=== PATIENT | male | born 1975 | race Hispanic/Latino ===

== ENCOUNTER → 2017-09-02 | Day surgery (SDC) | payer OTHER ==
[2017-08-31 11:29] LABS: BASOPHILS # (AUTO) 0.1 (0.0-0.1); BASOPHILS % 0.4 % (0.0-1.0); EOSINOPHILS # (AUTO) 0.4 (0.0-0.4); EOSINOPHILS % 2.9 % (0.0-6.0); HEMATOCRIT 45.3 % (38.2-49.6); HEMOGLOBIN 14.5 g/dL (14.0-18.0); LYMPHOCYTES # (AUTO) 2.8 (1.0-3.2); LYMPHOCYTES % 21.2 % (18.0-39.1); MEAN CORPUSCULAR HEMOGLOBIN 29.5 pg (28-32); MEAN CORPUSCULAR VOLUME 92.1 fL (81-99); MONOCYTES # (AUTO) 0.7 (0.2-0.8); MONOCYTES % 5.5 % (4.4-11.3); NEUTROPHILS # (AUTO) 9.1 (2.1-6.9); NEUTROPHILS % 69.6 % (38.7-80.0); PLATELET COUNT 273 x10e3/uL (140-360); RED BLOOD COUNT 4.92 x10e6/uL (4.3-5.7)
[~2017-09-02] MED LIST: BANOPHEN25 MG PO; EPHEDRINE SULFATE INJ 50 MG/10 ML SYR ONE; FENTANYL CITRATE/PF 100MCG/2 ML INJ ONE; HYOSCYAMINE SULFATE 0.5 MG/ML AMP ONE; METOCLOPRAMIDE HCL 10 MG/2ML VIAL ONE; MIDAZOLAM HCL 2 MG/2 ML VIAL ONE; NORCO 10-325 T1 EACH PO; OMEGA 3 1,0001 EACH PO; PANTOPRAZOLE SO40 MG PO; PHENYLEPHRINE HCL 1% 10 MG/ML VIAL ONE; PREDNISONE5 M1 PO; PROPOFOL IV EMULSION 10 MG/ML 50 ML VIAL ONE; SENNA PO; SIMVASTATIN20 MG PO
--- OUTSIDE RECORDS SUMMARY | 2017-09-02 08:28 | XMS REPORT ---
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 Allergies, Adverse Reactions, Alerts This patient has no known allergies or adverse reactions. Medications This patient has no known medications. Results Test Description Test Time Test Comments Text Results Atomic Results Result Comments ANAEROBIC CULTURE 2017-04-15 05:34:00 CULTURE (BEAKER) (test dxku=0374) No anaerobes isolated SURGICALLY OBTAINED CULTURE + GRAM [id number] 15:11:00* Test Item Value Reference Range Comments CULTURE (BEAKER) (test fhht=4548) No growth GRAM STAIN RESULT (BEAKER) (test nvpo=9994) <1+ WBCs GRAM STAIN RESULT (BEAKER) (test elez=93714) No organisms seen [id number] 10:36:00* Test Item Value Reference Range Comments SODIUM (BEAKER) (test zlrb=249) 139 meq/L 136-145 POTASSIUM (BEAKER) (test wuig=599) 4.2 meq/L 3.5-5.1 Specimen slightly hemolyzed CHLORIDE (BEAKER) (test qebe=997) 104 meq/L 98-107 CO2 (BEAKER) (test fzph=884) 26 meq/L 22-29 BUN AND [id number] 10:36:00* Test Item Value Reference Range Comments BLOOD UREA NITROGEN (BEAKER) (test xfde=709) 17 mg/dL 7-21 CREATININE (BEAKER) (test cnmx=292) 0.90 mg/dL 0.57-1.25 Specimen slightly hemolyzed EGFR (BEAKER) (test snho=4151) 92 mL/min/1.73 sq m ESTIMATED GFR IS NOT ACCURATE CREATININE CLEARANCE IN PREDICTING GLOMERULAR FILTRATION RATE. ESTIMATED GFR IS NOT APPLICABLE FOR DIALYSIS PATIENTS. [id number] 10:20:00* Test Item Value Reference Range Comments HEMOGLOBIN (BEAKER) (test seey=948) 14.7 GM/DL 13.7-17.5
--- OUTSIDE RECORDS SUMMARY | 2017-09-02 08:28 | XMS REPORT | Clinical Summary ---
Author Author [facility] Address Unknown Phone Unavailable Care Team Providers Care Manager Health Name Role Phone PCP Unavailable Allergies No Known Allergies Current Medications Prescription Sig. Disp. Refills Start End Date Status Date HYDROcodone-acetaminophen Take 1 tablet by mouth Active (NORCO 10-325) 10-325 mg every 6 (six) hours as per tablet needed for Pain. omega-3 fatty acids-fish Take 2 g by mouth 2 (two) Active oil 340-1,000 mg Cap per times daily. capsule omeprazole (PRILOSEC) 40 Take 40 mg by mouth Active MG capsule daily. phentermine 30 MG capsule Take 30 mg by mouth every Active morning. simvastatin (ZOCOR) 20 MG Take 20 mg by mouth Active tablet nightly. Active Problems Problem Noted Date Internal orthopedic device mechanical complication (HCC) 04/10/2017 Encounters Date Type Specialty Care Team Description 04/10/2017 Hospital Ricardo Watt MD Encounter 04/10/2017 Procedure Pass 04/10/2017 Surgery Ricardo Watt MD REMOVAL,INTERNAL HARDWARE-LOWER 04/09/2017 Anesthesia Freddie Medeiros MD Event 03/24/2017 Hospital Pre-Admission Testing Ricardo Watt MD Encounter 03/24/2017 Orders Only General Internal Medicine after 09/01/2016 Social History Tobacco Use Types Packs/Day Years Used Date Current Every Day Smoker 2 Smokeless Tobacco: Never Used Alcohol Use Drinks/Week oz/Week Comments Yes 12 Cans of 7.2 beer Sex Assigned at Date Recorded Not on file Last Filed Vital Signs Vital Sign Reading Time Taken Blood Pressure 131/74 04/10/2017 11:40 AM CDT Pulse 76 04/10/2017 11:40 AM CDT Temperature 36.6 C (97.9 F) 04/10/2017 11:40 AM CDT Respiratory Rate 20 04/10/2017 11:40 AM CDT Oxygen Saturation 94% 04/10/2017 11:40 AM CDT Inhaled Oxygen - - Concentration Weight 96.9 kg (213 lb 9.6 oz) 04/10/2017 6:15 AM CDT Height 162.6 cm (5' 4") 04/10/2017 6:15 AM CDT Body Mass Index 36.66 04/10/2017 6:15 AM CDT Plan of Treatment Not on file Procedures Procedure Name Priority Date/Time Associated Diagnosis Comments REMOVAL,INTERNAL 04/10/2017 Chronic pain of right HARDWARE-LOWER 7:30 AM CDT ankle after 09/01/2016 Results * Anaerobic culture (04/10/2017 8:32 AM) Component Value Ref Range Result No anaerobes isolated Specimen Performing Laboratory Tissue - Leg, Right Lower [address] [address] * Surgically obtained culture + gram stain (04/10/2017 8:32 AM) Component Value Ref Range Result No growth Gram Stain Result <1+ WBCs Gram Stain Result No organisms seen Specimen Performing Laboratory Tissue - Leg, Right Lower [address] [address] * BUN and Creatinine (03/24/2017 9:50 AM) Component Value Ref Range BUN 17 7 - 21 mg/dL Creatinine 0.90Comment: Specimen slightly hemolyzed 0.57 - 1.25 mg/dL EGFR 92Comment: ESTIMATED GFR IS NOT ACCURATE mL/min/1.73 sq m CREATININE CLEARANCE IN PREDICTING GLOMERULAR FILTRATION RATE. ESTIMATED GFR IS NOT APPLICABLE FOR DIALYSIS PATIENTS. Specimen Performing Laboratory Blood [address] [address] * Hemoglobin (03/24/2017 9:50 AM) Component Value Ref Range Hemoglobin 14.7 13.7 - 17.5 GM/DL Specimen Performing Laboratory Blood [address] [address] * Electrolytes (03/24/2017 9:50 AM) Component Value Ref Range Sodium 139 136 - 145 meq/L Potassium 4.2Comment: Specimen slightly hemolyzed 3.5 - 5.1 meq/L Chloride 104 98 - 107 meq/L CO2 26 22 - 29 meq/L Specimen Performing Laboratory Blood [facility] [address] [place] [address], [place] [address] * ECG 12 lead (03/24/2017 9:48 AM) Specimen Performing Laboratory GE MUSE Narrative Ventricular Rate 72 BPM Atrial Rate 72 BPM P-R Interval 170 ms QRS Duration 90 ms Q-T Interval 380 ms QTC Calculation(Bazett) 416 ms P [place] 6 degrees R [place] 9 degrees T [place] 11 degrees Normal sinus rhythm Normal ECG No previous ECGs available Confirmed by MD Tran Roberto ([id number]) on 03/24/2017 3:13:20 PM Procedure Note Interface, External Ris In - 03/24/2017 3:13 PM CDT Ventricular Rate 72 BPM Atrial Rate 72 BPM P-R Interval 170 ms QRS Duration 90 ms Q-T Interval 380 ms QTC Calculation(Bazett) 416 ms P [place] 6 degrees R [place] 9 degrees T [place] 11 degrees Normal sinus rhythm Normal ECG No previous ECGs available Confirmed by MD Tran Roberto ([id number]) on 03/24/2017 3:13:20 PM after 09/01/2016
--- NOTE | 2017-09-02 12:44 | Operative Report ---
DATE OF PROCEDURE: September 02, 2017 REFERRING PHYSICIAN: Anabel Vick MD PROCEDURES PERFORMED 1. Esophagogastroduodenoscopy with biopsies. 2. Colonoscopy with polypectomy. INDICATIONS FOR EGD: Heartburn, history of melena. INDICATIONS FOR COLONOSCOPY: Colorectal cancer screening. Father with colon cancer. History of bright red blood per rectum. MEDICATION: Patient was done under MAC. Please see anesthesiologist's note. PROCEDURE: With the patient in the left lateral decubitus position, the flexible fiberoptic Olympus gastroscope was introduced into the esophagus under direct visualization without any difficulty. There was some patchy erythema noted in the distal esophagus. The scope was then advanced with ease into the stomach. Mucosa overlying the antrum and the body revealed some diffuse erythema and low-grade to moderate edema, and biopsies were obtained and sent to stain for H. pylori. Extrinsic compression was noted against the antrum along the anterior wall. There was an approximately 5-mm nodule in the peripyloric area that was biopsied. Pylorus was intubated with ease, and the scope was advanced all the way to the 2nd portion of the duodenum. The scope was then withdrawn slowly. Minute nodule was noted in the proximal 2nd portion distal to the ampulla that was biopsied. The scope was then withdrawn back into the stomach and retroflexed. The mucosa overlying the fundus and the cardia appeared to be within normal limits. The scope was then straightened out. The stomach was decompressed. Scope was subsequently withdrawn. Patient tolerated the procedure well. IMPRESSION 1. Distal esophagitis. 2. Gastritis, biopsied. Biopsies sent to stain for H. pylori. 3. Approximately 5-mm nodule, peripyloric area, biopsied. 4. Minute nodule, proximal 2nd portion, biopsied. PLAN: Follow up histology. Increase Protonix to 40 mg 1 p.o. a.c. b.i.d. The patient was then turned around. After adequate lubrication of the anal canal, a flexible fiberoptic Olympus colonoscope was inserted into the rectum with ease and advanced all the way to the cecum. The scope was then withdrawn slowly. Mucosa overlying the cecum, ascending colon, and transverse colon appeared to be within normal limits. Three polyps was were snared and 1 polyp was hot biopsied from the descending colon. Three polyps were hot biopsied from the sigmoid colon. Five polyps were hot biopsied from the rectum. The scope was then retroflexed into the distal rectum, and small internal hemorrhoids were noted, none of which was actively bleeding. The scope was then straightened out. It was subsequently withdrawn. Patient tolerated the procedure well. IMPRESSION 1. Descending colon polyps times 4, three snared and one hot biopsied. 2. Sigmoid colon polyps times 3, hot biopsied. 3. Rectal polyps times 5, hot biopsied. 4. Internal hemorrhoids, none actively bleeding. PLAN: Follow up histology. Initiate high-fiber, low-fat diet. Initiate high-fiber supplement. Start MiraLAX 17 grams in a glass of water once daily. A total of 12 polyps were removed. Patient needs a followup colonoscopy in 1 year. Job#: [id number] cc:ANABEL VICK MD
== END | disposition home or self-care (01) ==
LOC: OR 08:27
PROVIDERS: ATTEND Internal Medicine Gastroenterology
DX: Z12.11 Encounter for screening for malignant neoplasm of colon (principal); D13.2 Benign neoplasm of duodenum; D12.4 Benign neoplasm of descending colon; D12.5 Benign neoplasm of sigmoid colon; K62.1 Rectal polyp; K29.50 Unspecified chronic gastritis without bleeding; K20.9 Esophagitis, unspecified; K59.00 Constipation, unspecified; K31.89 Other diseases of stomach and duodenum; K64.8 Other hemorrhoids; E78.5 Hyperlipidemia, unspecified; M79.606 Pain in leg, unspecified; R03.0 Elevated blood-pressure reading, without diagnosis of hypertension; F17.210 Nicotine dependence, cigarettes, uncomplicated; Z01.812 Encounter for preprocedural laboratory examination; Z68.36 Body mass index [BMI] 36.0-36.9, adult; Z80.0 Family history of malignant neoplasm of digestive organs
CPT/HCPCS: 36415; 43239; 45384; 45385; 84443; 85025; 93005; J1980; J2250; J2370; J2765